=== PATIENT | male | born 1935 | race Caucasian/White ===

== ENCOUNTER 2019-06-19 11:45 | Emergency (ER) | payer MEDICARE ==
[~2019-06-19] VITALS: Ht 167.6 cm; Wt 75.0 kg
[2019-06-19 14:15] VITALS: BP 144/99
== END 2019-06-19 14:25 | disposition home or self-care (01) ==
LOC: ER 11:48
DX: S32.010A Wedge compression fracture of first lumbar vertebra, initial encounter for closed fracture (principal); M47.816 Spondylosis without myelopathy or radiculopathy, lumbar region; F03.90 Unspecified dementia, unspecified severity, without behavioral disturbance, psychotic disturbance, mood disturbance, and anxiety; I10 Essential (primary) hypertension; Z91.010 Allergy to peanuts; W18.30XA Fall on same level, unspecified, initial encounter; Y93.89 Activity, other specified; Y92.89 Other specified places as the place of occurrence of the external cause; Y99.9 Unspecified external cause status
CPT/HCPCS: 72100; 99284